=== PATIENT | male | born 1955 | race Caucasian/White ===

== ENCOUNTER 2019-07-23 15:26 | Emergency (ER) | payer MEDICARE ==
[~2019-07-23] VITALS: Ht 185.4 cm; Wt 113.4 kg
--- OUTSIDE RECORDS SUMMARY | 2019-07-23 15:28 | XMS REPORT ---
Author Author [facility] Address Unknown Phone Unavailable Care Team Providers Care Fugitive Detective Name Role Phone SHAWN NÚÑEZ Unavailable Unavailable Problems This patient has no known problems. Allergies, Adverse Reactions, Alerts This patient has no known allergies or adverse reactions. Medications This patient has no known medications. Results Test Description Test Time Test Comments Text Results Atomic Results Result Comments RAD, CHEST, 1 VIEW, NON DEPT 2019-01-27 07:41:00 Reason for exam:->s/p chest tube removal FINAL REPORT Portable chest. CLINICAL HISTORY: s/p chest tube removal. COMPARISON STUDY: Chest x-ray from yesterday. FINDINGS: The cardiac silhouette is enlarged. The pulmonary parenchyma demonstrates scarring in the lung apices with reticulonodular markings and a 3.8 cm opacity in the left lung apex. Pulmonary hyperinflation is noted. The patient had a recent lung biopsy. The support lines and tubes are unchanged. No pneumothorax is seen. Degenerative changes are noted. IMPRESSION: No pneumothorax identified post chest tube removal. Mass in the left lung apex. Signed: Romie Ny MDReport Verified Date/Time: 01/27/2019 07:41:03 Reading Location: [address] Ortho Consult Reading Room , CHEST, 1 VIEW, NON DEPT 2019-01-26 20:51:00 Reason for exam:->post clamping of chest tubeShould this be performed at the bedside?->Yes FINAL REPORT Chest, 1 view. History: Post clamping of chest tube. Comparison: 01/26/2019 at 0732. Impression: Left sided pigtail chest tube identified in stable position. There is no evidence for pneumothorax status post chest tube clamping. The trachea is midline. There is stable biapical pleural thickening/scarring. Left upper lobe left mass again noted. There is no evidence for new large focal consolidation or significant pleural effusion. The cardiomediastinal silhouette is stable in appearance. No acute osseous abnormality identified. Signed: Sunny Hammond MDReport Verified Date/Time: 01/26/2019 20:51:26 Reading Location: [facility] B1 C013W Consult Reading Room , CHEST, 1 VIEW, NON DEPT 2019-01-26 08:40:00 Reason for exam:->pneumothoraxShould this be performed at the bedside?->Yes FINAL REPORT TECHNIQUE: Frontal chest radiograph dated 01/26/2019. CLINICAL HISTORY: PTX COMPARISON STUDY: Chest radiographs dated 01/25/2019 IMPRESSION:A left-sided pigtail chest tube is present. There is biapical pleural thickening/scarring. Left upper lobe mass is again visualized. Lungs are otherwise clear. No pleural effusion or pneumothorax. Cardiomediastinal silhouette is normal in size. No pulmonary edema. Bones are osteopenic. Signed: Go Cazareseport Verified Date/Time: 01/26/2019 08:40:43 Reading Location: [facility] Radiology Reading Room , DRAINAGE, CHEST TUBE INSERTION 2019-01-25 17:37:00 Reason for exam:->left apical chest tube placement for residual pneumothorax after biopsy FINAL REPORT CT-guided chest tube placement dated 01/25/2019 Procedure: CT-guided left pigtail chest tube placement Clinical Indication: Left pneumothorax Sedation: 50 mcg fentanyl IV was used. Total intraservice time of the sedation was 20 minutes. The patient's vital signs were monitored throughout the procedure and recorded in the patient's medical record by the nurse. Anesth esia: 1% Xylocaine local anesthesia. Technique: This exam was performed according to our departmental dose-optimization program, which includes automated exposure control, adjustment of the mA and/or kV according to patient size and/or use of interactive reconstruction technique. After obtaining informed consent, CT-guided chest tube placement was performed under usual sterile technique. After placing a 19-gauge coaxial needle and guidewire in the lower anterior left chest wall, the tract with dilated with a 6 and 8 Kyrgyz dilators. An 8 Kyrgyz all-purpose drainage catheter was placed. The catheter was connected to wall suction with resolution of the pneumothorax. Complication: None Estimated Blood Loss: None Impression: CT-guided pigtail left chest tube placement. Signed: David Harrington Verified Date/Time: 01/25/2019 17:37:22 Reading Location: [facility] C013Y CT Body Reading Room , CHEST, WITHOUT CONTRAST 2019-01-25 17:22:00 FINAL REPORT INDICATION: Left pneumothorax after left lung mass biopsy. COMPARISON:Chest radiographs January 25 through January 23. TECHNIQUE: Chest CT exam WITHOUT intravenous contrast. The exam was performed according to our department dose-optimization protocol, which includes automated exposure control, adjustments of mA and kV according to patient size. Iterative reconstructions are also sometimes employed. FINDINGS:There is a tiny left apical pneumothorax and a small left anterior base pneumothorax. Left upper lobe 3 cm mass, which was biopsied January 23, again demonstrated. There is severe emphysema. There is no pneumonia. Central airways are clear. No supraclavicular, mediastinal, or hilar lymphadenopathy is demonstrated. Heart is normal in size and there is no pericardial effusion. There is atherosclerosis of the thoracic aorta without aneurysm. Main pulmonary artery is normal in caliber. Thyroid gland and esophagus are unremarkable. Upper abdomen notable for enlarged liver and mildly irregular liver contour. No suspicious osseous lesion demonstrated. IMPRESSION: Tiny left apical and small left base pneumothorax, after biopsy of 3 cm left upper lobe mass.Severe emphysema. Signed: Gabe Temple Verified Date/Time: 01/25/2019 17:22:30 Reading Location: [facility] [id number] Ultrasound Reading Room Electronically signed by: GABE TEMPLE M.D. on 019 05:22 PM TISSUE EXAM 2019-01-25 14:18:00 Surgical Pathology Report Case: [id number] Authorizing Provider: Shawn Núñez MD Collected: 01/23/2019 1418 Ord ering Location: [facility] Radiology Main Received: 01/23/2019 1606 Pathologist: Jocelyn Feliciano MD Specimen: Lung, Left Upper Lobe A. LUNG, LEFT UPPER LOBE, CT GUIDED BIOPSY: - NECROTIZING GRANULOMATOUS INFLAMMATION - NEGATIVE FOR MALIGNANCY Signing Pathologist Direct Phone Line: [phone] signed by Jocelyn Feliciano MD on 01/25/2019 at 2:18 PMSpecial stain for GMS and AFB are negative for fungal and acid-fast micro -organisms respectively. Correlation with cultures and serology is recommended.[id number], [id number] emphysema and 3 cm left upper lobe mass.Left upper lobe lungThe specimen is received in a formalin-filled container and labeled with the patient's information and labeled "left upper lobe lung biopsy" and consists of multiple stringy fragments of red soft tissue ranging from less than 0.1 to 0.5 cm, submitted entirely A1. CG/pl Performed.The interpretation of this case included the use of immunohistochemistry or special stains. Immunohistochemistry technical testing was performed at [facility], Pathology Laboratory where it was developed and its performance characteristics were determined. It has not been cleared or approved by the U.S. Food and Drug Administration. The FDA has determined that such clearance or approval is not necessary. The test is used for clinical purposes. It should not be regarded as investigational or for research. This laboratory is certified under the Clinical Laboratory Improvement Amendments of 1988 (CLIA-88) as qualified to perform high complexity clinical laboratory testing. RAD, CHEST, 1 VIEW, NON DEPT 2019-01-25 10:19:00 Reason for exam:->pneumothorax FINAL REPORT Portable chest. CLINICAL HISTORY: pneumothorax. COMPARISON STUDY: Chest x-ray from yesterday. FINDINGS: The cardiac silhouette is unremarkable. The pulmonary parenchyma demonstrates a 5.8 x 3.2 cm opacity in the left upper lung field, similar to previous. A stable 1.7 cm apical pneumothorax is seen. Degenerative changes are noted. IMPRESSION: Mass in the left upper lung field with stable pneumothorax. Signed: Romie Ny MDReport Verified Date/Time: 01/25/2019 10:19:32 Reading Location: [facility] Radiology Reading Room , CHEST, 1 VIEW, NON DEPT 2019-01-24 09:00:00 Reason for exam:->pneumothorax FINAL REPORT AP chest HISTORY: Pneumothorax. COMPARISON: 01/23/2019. IMPRESSION: Small left apical pneumothorax, unchanged in size from comparison. Right lung clear. Heart size normal. Signed: Corrina Watkins MDReport Verified Date/Time: 01/24/2019 09:00:23 Reading Location: [facility] Radiology Reading Room , CHEST, 1 VIEW, NON DEPT 2019-01-23 22:16:00 Reason for exam:->pneumothoraxShould this be performed at the bedside?->Yes FINAL REPORT Chest one view. Clinical history: pneumothorax Comparison: Chest radiograph 01/23/19, 6:01 PM Technique: A single frontal view of the chest was obtained. Findings: Again seen is a left-sided pneumothorax, decreased in size and now small. There are upper lobe predominant emphysematous changes. Again seen is a left apical mass. There is no focal pulmonary consolidation, pleural effusion or pulmonary edema. The heart is normal in size. The aorta is atherosclerotic. The bony thorax is unremarkable. Impression: Interval decrease in size of left pneumothorax, now small.Emphysema.Left apical mass. Signed: Yari Meade MDReport Verified Date/Time: 01/23/2019 22:16:14 Reading Location: [facility] C013Y CT Body Reading Room , CHEST, 1 VIEW, NON DEPT 2019-01-23 18:51:00 Reason for exam:->s/p NATALYA lung mass biopsyShould this be performed at the bedside?->Yes FINAL REPORT INDICATION: s/p NATALYA lung mass biopsy COMPARISON:None. TECHNIQUE: Chest radiograph, single view, portable technique. FINDINGS / IMPRESSION: There is a moderate left apical pneumothorax after biopsy of left upper lobe mass. Upper lung emphysema noted. Cardiac and mediastinal contours unremarkable. Osseous structures unremarkable. Findings discussed with the referring physician, Dr. Núñez. At 6:50 PM (four hours after procedure) patient has normal respiratory rate and oxygenation on 2 L of nasal cannula. He says he is not short of breath and has no chest pain. He will be admitted for overnight monitoring and repeat chest x-ray in the morning. Signed: Gabe Temple MDRepsylvester Verified Date/Time: 01/23/2019 18:51:26 Reading Location: [facility] B1 C013Y CT Body Reading Room , BIOPSY, LUNG 2019-01-23 16:15:00 Reason for Exam:->R91.1 FINAL REPORT INDICATION:63-year-old male with left upper lobe mass. Request for image guided percutaneous biopsy. COMPARISON:Outside facility PET/CT January 02, 2019 TECHNIQUE:CT-guided core biopsy of left upper lobe mass. The exam was performed according to our department dose-optimization protocol, which includes automated exposure control, adjustments of mA and kV according to patient size. Iterative reconstructions are also sometimes employed. FINDINGS: The procedure was explained to the patient and informed consent was signed. The patient was positioned supine and preliminary images confirmed severe emphysema and a 3 cm left upper lobe mass. Timeout was performed. To sedate the patient Versed and Fentanyl were administered, as described below. The patient's skin was prepped and draped in standard sterile fashion. 2% lidocaine was used for local anesthesia. Using a left anterior axillary line approach and CT-guidance, a 19- gauge introducer needle was advanced to the anterolateral margin of the left upper lobe mass. A 20-gauge biopsy device was advanced into the mass. A core biopsy was obtained and placed in preservative. And additional four core biopsies were acquired and placed in preservative. A blood patch was performed using 2 cc of the patient's own blood administered at the pleura. Core biopsies were sent to pathology. Post procedure image showed no pneumothorax. Patient tolerated procedure well and was transferred to recovery. PROCEDURAL SEDATION:Procedural sedation was used with Versed 0.25 mg IV and Fentanyl 25 mcg IV administered. The department of radiology nurse was present at the time of procedure. Monitored cardiorespiratory function during conscious sedation was performed under the radiologist's supervision. Total monitoring time was approximately 45 minutes. IMPRESSION: CT-guided core biopsy of left upper lobe lung mass. Signed: Gabe Templeort Verified Date/Time: 01/23/2019 16:15:08 Reading Location: [facility] B1 C013Y CT Body Reading Room HROMBIN TIME/INR 2019-01-23 10:35:00 PROTIME (BEAKER) (test jozv=775) 14.3 seconds 11.7-14.7 INR (BEAKER) (test qrhv=451) 1.1 <=5.9 RECOMMENDED COUMADIN/WARFARIN INR THERAPY RANGESSTANDARD DOSE: 2.0 - 3.0 Inclu lamar: PROPHYLAXIS for venous thrombosis, systemic embolization; TREATMENT for ck ous thrombosis and/or pulmonary embolus.HIGH RISK: Target INR is 2.5-3.5 for pat ients with mechanical heart valves.[id number] 10:35:00* Test Item Value Reference Range Comments PARTIAL THROMBOPLASTIN TIME (BEAKER) (test wysp=820) 34.1 seconds 22.5-36.0 CBC W/PLT COUNT & AUTO [id number] 10:29:00* Test Item Value Reference Range Comments WHITE BLOOD CELL COUNT (BEAKER) (test msry=332) 8.4 K/ L 3.5-10.5 RED BLOOD CELL COUNT (BEAKER) (test jlox=099) 4.37 M/ L 4.63-6.08 HEMOGLOBIN (BEAKER) (test ruor=235) 14.3 GM/DL 13.7-17.5 HEMATOCRIT (BEAKER) (test gezy=746) 42.4 % 40.1-51.0 MEAN CORPUSCULAR VOLUME (BEAKER) (test ajvk=703) 97.0 fL 79.0-92.2 MEAN CORPUSCULAR HEMOGLOBIN (BEAKER) (test oydi=003) 32.7 pg 25.7-32.2 MEAN CORPUSCULAR HEMOGLOBIN CONC (BEAKER) (test gfqh=204) 33.7 GM/DL 32.3-36.5 RED CELL DISTRIBUTION WIDTH (BEAKER) (test vlny=382) 12.8 % 11.6-14.4 PLATELET COUNT (BEAKER) (test qwem=137) 165 K/CU MM 150-450 MEAN PLATELET VOLUME (BEAKER) (test afdz=452) 9.7 fL 9.4-12.4 NUCLEATED RED BLOOD CELLS (BEAKER) (test dsxq=822) 0 /100 WBC 0-0 NEUTROPHILS RELATIVE PERCENT (BEAKER) (test ocyo=429) 66 % LYMPHOCYTES RELATIVE PERCENT (BEAKER) (test vdye=589) 18 % MONOCYTES RELATIVE PERCENT (BEAKER) (test jlnz=968) 13 % EOSINOPHILS RELATIVE PERCENT (BEAKER) (test xbca=919) 2 % BASOPHILS RELATIVE PERCENT (BEAKER) (test neiu=593) 1 % NEUTROPHILS ABSOLUTE COUNT (BEAKER) (test eprs=339) 5.49 K/ L 1.78-5.38 LYMPHOCYTES ABSOLUTE COUNT (BEAKER) (test lxlv=567) 1.54 K/ L 1.32-3.57 MONOCYTES ABSOLUTE COUNT (BEAKER) (test mhtm=183) 1.04 K/ L 0.30-0.82 EOSINOPHILS ABSOLUTE COUNT (BEAKER) (test juwe=640) 0.17 K/ L 0.04-0.54 BASOPHILS ABSOLUTE COUNT (BEAKER) (test xoat=238) 0.05 K/ L 0.01-0.08 IMMATURE GRANULOCYTES-RELATIVE PERCENT (BEAKER) (test xdag=4395) 1 % 0-1
[2019-07-23] MEDS ORDERED: OXYMETAZOLINE HCL 0.05% NAS 1 SPRAY BTL ONE (15:45)
[2019-07-23] MEDS ORDERED: ALBUTEROL/IPRATROPIUM 3 ML NEB NEB ONE (17:30)
[2019-07-23 17:33] VITALS: BP 156/90
== END 2019-07-23 18:47 | disposition home or self-care (01) ==
LOC: ER 15:26
DX: R04.0 Epistaxis (principal); I10 Essential (primary) hypertension; B19.20 Unspecified viral hepatitis C without hepatic coma
CPT/HCPCS: 94644; 99283

== ENCOUNTER 2019-08-31 10:37 | Inpatient (IN) | payer MEDICARE ==
[~2019-08-31] VITALS: Ht 185.4 cm; Wt 113.4 kg
[2019-08-31] MEDS ORDERED: ALBUTEROL SULF 0.083% NEB SOLN 3 ML NEB NEB STA (11:19)
[2019-08-31] MEDS ORDERED: METHYLPREDNISOLONE SOD SUCC 125 MG/2ML VIAL IV STA (11:19)
[2019-08-31] MEDS ORDERED: IPRATROPIUM BROMIDE 0.02% 2.5 ML NEB NEB STA (11:19)
[2019-08-31 11:21] LABS: BASOPHILS % 0.2 % (0.0-1.0); EOSINOPHILS # (AUTO) 0.1 (0.0-0.4); EOSINOPHILS % 0.3 % (0.0-6.0); HEMOGLOBIN 10.7 g/dL (14.0-18.0); LYMPHOCYTES # (AUTO) 1.5 (1.0-3.2); LYMPHOCYTES % 9.3 % (18.0-39.1); MEAN CORPUSCULAR HEMOGLOBIN 32.9 pg (28-32); MEAN CORPUSCULAR HGB CONC 34.5 g/dL (31-35); MEAN CORPUSCULAR VOLUME 95.4 fL (81-99); MONOCYTES # (AUTO) 1.6 (0.2-0.8); NEUTROPHILS # (AUTO) 12.9 (2.1-6.9); NEUTROPHILS % 78.9 % (38.7-80.0); PLATELET COUNT 203 x10e3/uL (140-360); RED BLOOD COUNT 3.25 x10e6/uL (4.3-5.7); RED CELL DISTRIBUTION WIDTH 14.1 % (11.7-14.4)
[2019-08-31 12:06] LABS: INR 1.24; PARTIAL THROMBOPLASTIN TIME 34.7 seconds (23.8-35.5); PROTHROMBIN TIME 16.2 seconds (11.9-14.5)
[2019-08-31 12:35] LABS: ALANINE AMINOTRANSFERASE 65 IU/L (0-55); ALBUMIN/GLOBULIN RATIO 0.4 (0.8-2.0); ALKALINE PHOSPHATASE 119 IU/L (40-150); BLOOD UREA NITROGEN 6 mg/dL (7-26); BUN/CREATININE RATIO 10 (6-25); CALCIUM 8.7 mg/dL (8.4-10.2); CARBON DIOXIDE 28 mmol/L (22-29); CHLORIDE 92 mmol/L (98-107); CREATINE KINASE 31 IU/L (30-200); CREATININE, SERUM 0.61 mg/dL (0.72-1.25); EST GLOMERULAR FILTRATION RATE > 60 ML/MIN (60-); GLUCOSE 95 mg/dL (74-118); SODIUM 127 mmol/L (136-145)
--- NOTE | 2019-08-31 12:37 | Diagnostic Imaging Report ---
EXAMINATION: CHEST 2 VIEWS INDICATION: Cough COMPARISON: None FINDINGS: LINES/TUBES:EKG leads overlie the chest. LUNGS:The lungs are hyperinflated. Biapical pleural parenchymal thickening/scarring. Left upper lobe consolidation and bronchiectasis. PLEURA:No pleural effusion or pneumothorax. MEDIASTINUM:The cardiomediastinal silhouette appears normal in size and shape. Atherosclerotic calcifications of the thoracic aorta. BONES/SOFT TISSUES:No acute osseous injury. ABDOMEN:No free air under the diaphragm. IMPRESSION: Hyperinflated lungs. Left upper lobe consolidation and bronchiectasis consistent with pneumonia in the proper clinical setting. RECOMMENDATIONS: Follow-up AP and lateral chest radiograph in 6-8 weeks to assess for resolution and exclude underlying mass lesion. Signed by: Andra Ryan MD on 08/31/2019 12:33 PM
[2019-08-31] MEDS ORDERED: CEFTRIAXONE SOD 1 GM/NS 50 ML 50 ML IV STA (12:59)
[2019-08-31] MEDS ORDERED: AZITHROMYCIN 500MG/NS 250 ML 250 ML IV STA (12:59)
[2019-08-31 13:08] LABS: BILIRUBIN,URINE MODERATE (NEGATIVE); CLARITY,URINE CLOUDY (CLEAR); COLOR,URINE YELLOW (YELLOW); KETONES,URINE TRACE (NEGATIVE); LEUKOCYTE ESTERASE ,URINE NEGATIVE (NEGATIVE); NITRITE,URINE NEGATIVE (NEGATIVE); PROTEIN,URINE DIPSTICK NEGATIVE (NEGATIVE); URINE UROBILINOGEN 1 mg/dL (0.2 - 1)
[2019-08-31 13:23] LABS: AMORPHOUS SEDIMENT,URINE FEW (FEW); BACTERIA,URINE MODERATE /HPF; EPITHELIAL CELLS,URINE FEW /LPF; RBC,URINE 0-5 /HPF (0-5); WBC,URINE (MAN) 0-5 /HPF (0-5)
[2019-08-31] MEDS ORDERED: SODIUM CHLORIDE 0.9% 1000ML 1,000 ML IV STA (13:34)
[2019-08-31] MEDS ORDERED: SODIUM CHLORIDE 0.9% 1000ML 1,000 ML IV SCH (13:37)
[2019-08-31] MEDS ORDERED: SODIUM CHLORIDE FLUSH 10 ML SYR INJ PRN (13:45)
[2019-08-31 14:05] LABS: LYMPHOCYTES % (MANUAL) 12 % (19-48); MONOCYTES % (MANUAL) 8 % (3.4-9.0); NEUTROPHILS % (MANUAL) 80 % (40-74)
[2019-08-31 14:08] LABS: POIKILOCYTOSIS SLIGHT; TEAR DROP CELLS FEW
[2019-08-31] MEDS: ALBUTEROL SULF 0.083% NEB SOLN 3 ML NEB NEB SCH ×2 (14:10→19:30)
[2019-08-31 14:11] LABS: PLATELET ESTIMATE ADEQUATE; RBC MORPHOLOGY COMMENT ABNORMAL
[2019-08-31 14:12] LABS: PLATELET MORPHOLOGY COMMENT FEW LARGE
[2019-08-31 14:55] VITALS: BP 139/76
--- NOTE | 2019-08-31 14:55 | NUR ---
PATIENT RECEIVED FROM ER PER STRETCHER. ALERT AND VERBALLY RESPONSIVE, ABLE TO TRANSFER SELF FROM STRETCHER TO BED. DENIED PAIN AT THIS TIME. SKIN WARM AND DRY TO TOUCH WITH SOME SCRATCHES TO BOTH ARMS. RESPIRATION EVEN AND UNLABORED WITH O2 IN PLACE VIA N/C, ABDOMEN SOFT AND ROUND. YELLOW SOCK TO FEET. PATIENT ORIENTED TO SURROUNDINGS. BED IN LOWER POSITION, CALL LIGHT AT REACH. INSTRUCTED TO CALL FOR ASSISTANCE NEEDED.
[2019-08-31] MEDS ORDERED: ACETAMINOPHEN 325 MG TAB PO PRN (15:15)
[2019-08-31] MEDS: AZITHROMYCIN 500MG/NS 250 ML 250 ML IV SCH (15:45)
[2019-08-31] MEDS ORDERED: ALPRAZOLAM 0.5 MG TAB PO PRN (15:45)
[2019-08-31] MEDS ORDERED: CEFTRIAXONE SOD 1 GM/NS 50 ML 50 ML IV SCH ×2 (15:45→20:00)
[2019-08-31] MEDS: SODIUM CHLORIDE 0.9% 1000ML 1,000 ML IV SCH (16:30)
[2019-08-31] MEDS: PROPRANOLOL HCL 10 MG TAB PO SCH (17:41)
[2019-08-31] MEDS: BUPROPION HCL SR 150 MG TAB PO SCH (17:41)
[2019-08-31] MEDS: FUROSEMIDE 20 MG TAB PO SCH (17:42)
--- NOTE | 2019-08-31 18:00 | NUR ---
FLU SPECIMEN COLLECTED AND SENT TO THE LAB.
[2019-08-31 19:18] VITALS: BP 139/76
--- NOTE | 2019-08-31 19:18 | NUR ---
PT IS RESTING IN BED. RESPIRATION IS EVEN AND UNLABORED, NO DISTRESS NOTED. BED IN THE LOWEST POSITION, LOCKED, AND CALL LIGHT WITHIN REACH. WILL CONTINUE TO MONITOR.
[2019-08-31] MEDS: IPRATROPIUM BROMIDE 0.02% 2.5 ML NEB NEB SCH (19:30)
[2019-08-31 20:00] VITALS: BP 146/71
[2019-08-31] MEDS ORDERED: METHYLPREDNISOLONE SOD SUCC 40 MG/ML VIAL 1ML IV SCH (21:00)
[2019-08-31] MEDS: HEPARIN SOD (PORCINE) 5,000 UNIT/ML VIAL SC SCH (21:27)
--- NOTE | 2019-08-31 21:50 | History and Physical ---
PRIMARY CARE PHYSICIAN: Dr. Oliveira with [facility]. CHIEF COMPLAINT: Shortness of breath and productive cough. HISTORY OF PRESENT ILLNESS: This is a 64-year-old male with past medical history of COPD, hep C and cirrhosis, presented to the ER with complaints of shortness of breath, productive cough, green, and body aches x1 week. He reports having fever on and off for the past week, now has resolved that with increased shortness of breath. He went to [facility] for a checkup, but he was told to come to the ER for evaluation. He reports nausea, but no vomiting, he denies any chest pain, hemoptysis, night sweats, diaphoresis, vomiting, diarrhea, or abdominal pain. He was given azithromycin, Rocephin and Solu-Medrol in the ER and chest x-ray revealed left upper lobe pneumonia, so will be admitted for further management. PAST MEDICAL HISTORY: 1. Chronic obstructive pulmonary disease. 2. Hep C. 3. Cirrhosis of the liver. SURGICAL HISTORY: Reports appendectomy as a child. FAMILY HISTORY: Does not know his parents medical status, but reports three sisters of lung cancer. SOCIAL HISTORY: He quit smoking about a month ago, he drinks alcohol occasionally and denies any illicit drug use. ALLERGIES: NO KNOWN DRUG ALLERGIES. REVIEW OF SYSTEMS: GENERAL: Generalized weakness with body aches. HEENT: Had nosebleeds three weeks ago, now stopped. LUNGS: Shortness of breath and productive cough. CARDIOVASCULAR: No chest pain or palpitations. GI: Nausea with no vomiting. No abdominal pain. NEUROLOGIC: Alert and awake. Complains of mild dizziness. MUSCULOSKELETAL: Generalized weakness, bilateral lower extremity edema. SKIN: Rash on right upper extremities. PHYSICAL EXAMINATION: VITAL SIGNS: Temperature 98.9, pulse is 100, respirations 19, blood pressure 139/79, pulse ox is 99% on 3 L of oxygen. GENERAL: Fatigue. HEENT: Normocephalic, atraumatic. NECK: Supple and midline. LUNGS: With decreased breath sounds and mild wheezing in the lower lobes. CARDIOVASCULAR: Regular rate and rhythm. GI: Soft and nontender. NEUROLOGIC: Alert, awake, and oriented x3. MUSCULOSKELETAL: Moves all extremities. Bilateral lower extremity edema about 2+. SKIN: Dry with rash noted on the upper extremities. Psych: Calm. LABORATORY DATA: WBC is 16.4, hemoglobin is 10.7, hematocrit is 31, platelet is 203. Sodium is 125, potassium is 4.0, carbon dioxide is 28, BUN is 6, creatinine is 0.61, estimated GFR is greater than 60. Lactic acid is 1.8, AST 97, ALT 65, CK 31, troponin less than 0.001. BNP is 135. Albumin 2.0. Coagulation; PT 16.2, INR 1.24, APTT 34.7. UA, clarity, cloudy with trace ketones and moderate bacteria. Urine and blood cultures are pending. IMAGING: Chest x-ray showed hyperinflated lungs with left upper lobe consolidation and bronchiectasis consistent with pneumonia. IMPRESSION AND PLAN: 1. Sepsis on admission due to pneumonia. Cultures are pending. Chest x-ray showed pneumonia, left upper lobe. We will continue with IV antibiotics, neb treatments, and supportive therapy. 2. Hyponatremia. Sodium 127. We will continue with light hydration with NS. 3. History of chronic obstructive pulmonary disease with shortness of breath. Questionable exacerbation. We will continue with Solu-Medrol 40 mg IV b.i.d. We will continue nebs and antibiotics. 4. Hepatitis C, aware. 5. Cirrhosis with elevated LFTs. INR is stable. We will continue to monitor. Continue his home medications once reconciled. Anemia of chronic disease. We will continue to monitor closely. Hemoglobin is 10.7. 6. Reported lung nodule per patient. He is scheduled to have lung biopsy next month per PCP. 7. Deep venous thrombosis prophylaxis. We will start heparin subcu b.i.d. Dictated by SEEMA Street Bronwyn Burns MD MY/MODL /[id number] Seen and examined, updated PCP. Agree with the findings and plan as documented by SEEMA Kong. MTDD
[2019-09-01] VITALS (8 sets, daily range): BP systolic 126–149; BP diastolic 70–79
[2019-09-01] MEDS: ALBUTEROL SULF 0.083% NEB SOLN 3 ML NEB NEB SCH ×7 (03:40→23:30)
[2019-09-01] MEDS: SODIUM CHLORIDE 0.9% 1000ML 1,000 ML IV SCH ×2 (05:23→20:17)
[2019-09-01 06:28] LABS: BASOPHILS % 0.1 % (0.0-1.0); HEMATOCRIT 28.5 % (38.2-49.6); HEMOGLOBIN 9.2 g/dL (14.0-18.0); LYMPHOCYTES % 8.7 % (18.0-39.1); MEAN CORPUSCULAR HEMOGLOBIN 32.5 pg (28-32); MEAN CORPUSCULAR HGB CONC 32.3 g/dL (31-35); MEAN CORPUSCULAR VOLUME 100.7 fL (81-99); MONOCYTES # (AUTO) 0.7 (0.2-0.8); MONOCYTES % 6.3 % (4.4-11.3); NEUTROPHILS # (AUTO) 9.1 (2.1-6.9); NEUTROPHILS % 83.7 % (38.7-80.0); PLATELET COUNT 155 x10e3/uL (140-360); RED BLOOD COUNT 2.83 x10e6/uL (4.3-5.7); RED CELL DISTRIBUTION WIDTH 13.6 % (11.7-14.4)
[2019-09-01 06:42] LABS: ANION GAP 9.4 mmol/L (8-16); BLOOD UREA NITROGEN 11 mg/dL (7-26); BUN/CREATININE RATIO 19 (6-25); CALCIUM 8.1 mg/dL (8.4-10.2); CARBON DIOXIDE 27 mmol/L (22-29); CHLORIDE 99 mmol/L (98-107); CREATININE, SERUM 0.59 mg/dL (0.72-1.25); EST GLOMERULAR FILTRATION RATE > 60 ML/MIN (60-); GLUCOSE 145 mg/dL (74-118); POTASSIUM 4.4 mmol/L (3.5-5.1); SODIUM 131 mmol/L (136-145)
--- NOTE | 2019-09-01 07:25 | NUR ---
PATIENT IN BED RESTING WITH NO S/S OF DISTRESS. URINAL EMPTIED AND CLEANSED, IV FLUID INFUSING ORDERED. BED IN LOWER POSITION, CALL LIGHT AT REACH.
[2019-09-01] MEDS: IPRATROPIUM BROMIDE 0.02% 2.5 ML NEB NEB SCH ×4 (07:27→19:20)
[2019-09-01] MEDS: BUPROPION HCL SR 150 MG TAB PO SCH ×2 (08:56→17:19)
[2019-09-01] MEDS: PREDNISONE 20 MG TAB PO SCH (08:56)
[2019-09-01] MEDS: PANTOPRAZOLE SOD 40 MG TABEC PO SCH (08:56)
[2019-09-01] MEDS: FUROSEMIDE 20 MG TAB PO SCH (08:56)
[2019-09-01] MEDS: PROPRANOLOL HCL 10 MG TAB PO SCH ×2 (08:56→17:19)
[2019-09-01] MEDS: HEPARIN SOD (PORCINE) 5,000 UNIT/ML VIAL SC SCH ×2 (09:08→21:49)
--- NOTE | 2019-09-01 09:55 | NUR ---
PT APPEARED TO BE IN DEEP SLEEP, COULD NOT DO DPA
--- NOTE | 2019-09-01 11:51 | NUR ---
PATIENT SITTING AT BED SIDE EATING LUNCH, NO DIFFICULTY SWALLOWING OBSERVED. CALL LIGHT AT REACH.
[2019-09-01] MEDS: CEFEPIME 1GM/NS 0.9% 50 ML 50 ML IV SCH (15:00)
--- NOTE | 2019-09-01 15:03 | Progress Note ---
DATE: 09/01/2019 CHIEF COMPLAINT: Shortness of breath, wheezing and productive cough. SUBJECTIVE: The patient is seen resting in bed with no acute distress. He has improved shortness of breath, wheezing and cough. Remains afebrile, vitals stable, no events overnight. PHYSICAL EXAMINATION: VITAL SIGNS: Temperature 96.2, pulse is 94, respirations 20, blood pressure 133/70, pulse ox is 95% on 2 L of O2. GENERAL: No acute distress. HEENT: Normocephalic, atraumatic. NECK: Supple and midline. LUNGS: With moderate wheezing throughout. CARDIOVASCULAR: Regular rate and rhythm. GI: Soft and nontender. NEUROLOGIC: Alert, awake, oriented x3. MUSCULOSKELETAL: Moves all extremities with bilateral lower extremity edema 2+ noted. SKIN: Dry with rash on upper extremities. PSYCH: Calm. LABORATORY DATA: WBC 10.9, hemoglobin 9.2, hematocrit 28.5, platelet 155. Sodium 131, potassium is 4.4, BUN is 11, creatinine is 0.59, estimated GFR is greater than 60, glucose is 145, calcium is 8.1. Influenza A and B negative. Blood cultures negative so far. Urine cultures negative. IMPRESSION AND PLAN: 1. Sepsis on admission due to pneumonia. Cultures have been negative so far. Chest x-ray showed pneumonia left upper lobe. We will change Rocephin to cefepime for broader coverage and azithromycin, neb and supportive therapy. 2. Hyponatremia. Sodium is improving with IV fluid hydration. 3. Chronic respiratory distress due to chronic obstructive pulmonary disease. We will continue on prednisone 40 mg p.o. daily and nebs. 4. History of hepatitis C, aware. 5. Cirrhosis of the liver. INR is normal. We will continue home medication. 6. Anemia of chronic disease. We will continue to monitor closely and transfuse if hemoglobin is less than 7. 7. Reported lung nodule per patient. He is scheduled to have a lung biopsy in September. 8. Deep vein thrombosis prophylaxis. We will continue heparin subcu b.i.d. Dictated by SEEMA Street Bronwyn Burns MD MY/MODL /[id number] Seen and examined, baseline chronic respiratory failure on home oxygen. Agree with the findings and plan as documented by SEEMA Kong. JAZMYN
[2019-09-01] MEDS: AZITHROMYCIN 500MG/NS 250 ML 250 ML IV SCH (16:00)
--- NOTE | 2019-09-01 16:47 | NUR ---
SPUTUM SPECIMEN COLLECTED AND SENT TO THE LAB.
--- NOTE | 2019-09-01 19:15 | NUR ---
Bed side shift report taken from morning Ernesto in the bed.stable condition.
--- NOTE | 2019-09-01 22:10 | NUR ---
Assessment done.no resp.distress.no pain voiced.iv fluid infusing.bed locked and in lowest position.phone and call light within reach.instructed to call for assistance as needed.
[2019-09-02] VITALS: BP 140/73
[2019-09-02] MEDS: CEFEPIME 1GM/NS 0.9% 50 ML 50 ML IV SCH (02:20)
[2019-09-02] MEDS: ALBUTEROL SULF 0.083% NEB SOLN 3 ML NEB NEB SCH ×3 (02:55→11:11)
[2019-09-02] MEDS: IPRATROPIUM BROMIDE 0.02% 2.5 ML NEB NEB SCH ×2 (02:55→07:21)
[2019-09-02 04:00] VITALS: BP 146/69
[2019-09-02 07:05] VITALS: BP 136/72
--- NOTE | 2019-09-02 07:05 | NUR ---
PATIENT IN BED RESTING WITH NO DISTRESS. O2 IN PLACE VIA N/C, IV FLUID IN PROGRESS. DENIED PAIN AT THIS TIME. BED IN LOWER POSITION, CALL LIGHT AT REACH.
--- NOTE | 2019-09-02 07:07 | NUR ---
Bed side shift report given to the oncoming Rn.stable condition.
[2019-09-02 07:40] VITALS: BP 136/72
[2019-09-02] MEDS: FUROSEMIDE 20 MG TAB PO SCH (08:56)
[2019-09-02] MEDS: PREDNISONE 20 MG TAB PO SCH (08:56)
[2019-09-02] MEDS: BUPROPION HCL SR 150 MG TAB PO SCH (08:56)
[2019-09-02] MEDS: PROPRANOLOL HCL 10 MG TAB PO SCH (08:56)
[2019-09-02] MEDS: PANTOPRAZOLE SOD 40 MG TABEC PO SCH (08:56)
[2019-09-02] MEDS: SODIUM CHLORIDE 0.9% 1000ML 1,000 ML IV SCH (09:14)
[2019-09-02] MEDS: HEPARIN SOD (PORCINE) 5,000 UNIT/ML VIAL SC SCH (09:15)
--- NOTE | 2019-09-02 11:12 | NUR ---
PATIENT REQUESTED AND RECEIVED AN CUP OF ICE. URINAL EMPTIED AND CLEANSED. IV FLUID INFUSING ORDERED. CALL LIGHT AT REACH.
[2019-09-02] MEDS ORDERED: WELLBUTRIN SR150 MG PO (12:01)
[2019-09-02] MEDS ORDERED: PROPRANOLOL HCL10 MG PO (12:01)
[2019-09-02] MEDS ORDERED: FUROSEMIDE20 MG PO (12:01)
[2019-09-02] MEDS ORDERED: LEVAQUIN500 MG PO (12:01)
[2019-09-02] MEDS ORDERED: PREDNISONE10 MG PO (12:01)
[2019-09-02 12:47] VITALS: BP 165/84
--- NOTE | 2019-09-02 13:07 | Discharge Summary ---
PRIMARY CARE PHYSICIAN: Dr. Oliveira with [facility]. FINAL DIAGNOSES: 1. Sepsis on admission due to pneumonia. 2. Hyponatremia. 3. History of chronic respiratory distress due to chronic obstructive pulmonary disease. 4. History of hepatitis C. 5. Cirrhosis of the liver. 6. Anemia of chronic disease. 7. Reported lung nodules. 8. Depression. CONSULTANTS: None. PROCEDURES: None. HISTORY: Per HPI. HOSPITAL COURSE: This is a 64-year-old male with chronic respiratory distress, presented with increased shortness of breath, wheezing and cough, has been with fever times few days. Upon admission, he was noted to have pneumonia in left upper lobe noted on chest x-ray. The culture sent. He was started on IV fluids and antibiotics cefepime and azithromycin. WBC trended down. Continued with neb treatments. Blood cultures were negative. Today, he is afebrile, vital signs stable, although has wheezing and shortness of breath. The patient states this is his baseline and wants to go home. We will discharge home on p.o. antibiotics to follow up with his PCP, Dr. Oliveira for repeat chest x-ray. PHYSICAL EXAMINATION: VITAL SIGNS: Temperature 97.5, pulse is 83, respirations 20, blood pressure 136/72, and pulse ox is 99% on 2 L of oxygen. GENERAL: No acute distress. HEENT: Normocephalic and atraumatic. NECK: Supple and midline. LUNGS: With moderate wheezing throughout. CARDIOVASCULAR: Regular rate and rhythm. GI: Soft and nontender. NEUROLOGIC: Alert, awake, and oriented x3. MUSCULOSKELETAL: Moves all extremities with bilateral lower extremity edema, which is baseline. SKIN: Dry and intact. PSYCH: Calm. CONDITION AT DISCHARGE: Stable. DISCHARGE MEDICATIONS: See medication reconciliation list. FOLLOWUP: Follow up with Dr. Oliveira in 1 to 2 weeks. TIME SPENT: Total time of discharge is 35 minutes. Dictated by [address] Bronwyn Burns MD MY/MODL /[id number] cc: Naomy Oliveira MD Seen and examined, updated PCP, instructed the patient to follow up with the PCP within a week. Agree with the findings and plan as documented by SEEMA Kong. JAZMYN
--- NOTE | 2019-09-02 14:00 | NUR ---
PATIENT DISCHARGED HOME. DISCHARGE INSTRUCTIONS, PRESCRIPTIONS, AND FOLLOW UP GIVEN TO PATIENT, HE VERBALIZED UNDERSTANDING. IV TO LEFT AC REMOVED WITH TIP INTACT. ALL PERSONAL ITEMS TAKEN WITH PATIENT. LEFT UNIT PER WHEEL CHAIR TO FRONT LOBBY IN STABLE CONDITION.
== END 2019-09-02 14:06 | disposition home or self-care (01) | DRG 871 ==
LOC: ER 10:37 → ERHOLD 13:37 → MED/SURG3 14:34
PROVIDERS: ADMIT Internal Medicine; ATTEND Internal Medicine
DX: A41.9 Sepsis, unspecified organism (principal); J15.9 Unspecified bacterial pneumonia; E87.1 Hypo-osmolality and hyponatremia; J44.9 Chronic obstructive pulmonary disease, unspecified; D72.829 Elevated white blood cell count, unspecified; K74.60 Unspecified cirrhosis of liver; R91.8 Other nonspecific abnormal finding of lung field; Z86.19 Personal history of other infectious and parasitic diseases; Z80.1 Family history of malignant neoplasm of trachea, bronchus and lung; Z87.891 Personal history of nicotine dependence; D63.8 Anemia in other chronic diseases classified elsewhere; R06.09 Other forms of dyspnea; F32.9 Major depressive disorder, single episode, unspecified
CPT/HCPCS: 36415; 71046; 80048; 80053; 81001; 82550; 82553; 83605; 83880; 84484; 85025; 85610; 85730; 87040; 87070; 87086; 87205; 87400; 93005; 94640; 99284; J0456; J0692; J0696; J1644; J2930; J7030; J7512